=== PATIENT | female | born 1945 | race Caucasian/White ===

== ENCOUNTER 2022-10-19 09:20 | Day surgery (SDC) | payer MEDICARE, OTHER ==
[2022-10-14 12:15] LABS: BASOPHILS % (AUTO) 1.2 % (0-1); EOSINOPHILS # (AUTO) 0.3 X10'3 (0-0.9); EOSINOPHILS % (AUTO) 7.8 % (0-6); HEMATOCRIT 37.2 % (35.0-45.0); HEMOGLOBIN 12.4 g/dl (12.0-16.0); LYMPHOCYTES # (AUTO) 1.3 X10'3 (1.1-4.8); LYMPHOCYTES % (AUTO) 34.1 % (21-51); MEAN CORPUSCULAR HEMOGLOBIN 33.4 PG (27.0-31.0); MEAN CORPUSCULAR HGB CONC 33.4 g/dL (33.0-36.5); MEAN CORPUSCULAR VOLUME 99.9 FL (78-98); MEAN PLATELET VOLUME 8.4 FL (7.4-10.4); MONOCYTES # (AUTO) 0.5 X10'3 (0-0.9); MONOCYTES % (AUTO) 13.7 % (2-12); NEUTROPHILS # (AUTO) 1.7 X10'3 (1.8-7.7); NEUTROPHILS % (AUTO) 43.2 % (42-75); PLATELET COUNT 278 X10'3 (140-440); RED BLOOD COUNT 3.72 X10'6 (4.20-5.60); RED CELL DISTRIBUTION WIDTH 13.6 % (11.5-14.5); WHITE BLOOD COUNT 3.9 X10'3 (4.5-11.0)
[2022-10-14 12:27] LABS: APTT 28 SECONDS (22-32)
[2022-10-14 12:30] LABS: ALANINE AMINOTRANSFERASE 20 U/L (12-78); ALBUMIN 3.9 G/DL (3.4-5.0); ALBUMIN/GLOBULIN RATIO 1.4 (1.1-1.5); ALKALINE PHOSPHATASE 80 IU/L (46-116); ANION GAP 7 (8-16); ASPARTATE AMINO TRANSFERASE 18 U/L (10-37); BILIRUBIN,TOTAL 0.4 MG/DL (0.1-1.0); BLOOD UREA NITROGEN 7 MG/DL (7-18); BUN/CREATININE RATIO 6.9 (10.0-20.0); CALCIUM 9.4 MG/DL (8.5-10.1); CHLORIDE 105 MMOL/L (99-107); CREATININE 1.02 MG/DL (0.40-0.90); GLUCOSE 96 MG/DL (70-104); POTASSIUM 3.9 MMOL/L (3.5-5.1); SODIUM 140 MMOL/L (135-145); TOTAL CARBON DIOXIDE 27.8 MMOL/L (24-32); TOTAL PROTEIN 6.7 G/DL (6.4-8.2); eGFR 53 ML/MIN
[2022-10-19] VITALS (14 sets, daily range): BP systolic 93–130; BP diastolic 38–65; PULSE 60–80; RESP 13–16; TEMP 97.9; O2SAT 91–98
[~2022-10-19] VITALS: Ht 162.6 cm; Wt 61.1 kg
[2022-10-19] MEDS ORDERED: diphenhydrAMINE 25mg capsule PO PRN (09:50)
[2022-10-19] MEDS ORDERED: LORazepam 0.5 MG tablet PO PRN (09:50)
[2022-10-19] MEDS ORDERED: normal saline 1,000 ML IV SCH (09:50)
[2022-10-19] MEDS ORDERED: methylPREDNISolone sod succ 125mg/2ml vial IV ONE (09:50)
[2022-10-19] MEDS ORDERED: nitroGLYCERIN 0.4mg SUBLingual tab SL PRN ×2 (09:50→13:25)
[2022-10-19] MEDS ORDERED: LEVO75TA7 PO (11:21)
[2022-10-19] MEDS ORDERED: PRED20TA PO (11:21)
[2022-10-19] MEDS ORDERED: CHOL100012 PO (11:21)
[2022-10-19] MEDS ORDERED: MULT-1085 PO (11:21)
[2022-10-19] MEDS ORDERED: ALPR0.5T9 PO (11:21)
[2022-10-19] MEDS ORDERED: CLOB15CR11 TOP (11:21)
[2022-10-19] MEDS ORDERED: FEXO-25 PO (11:21)
[2022-10-19] MEDS ORDERED: FLUT12AE22 PO (11:21)
[2022-10-19] MEDS ORDERED: FAMO20TA8 PO (11:21)
[2022-10-19] MEDS ORDERED: PREVCR VG (11:21)
[2022-10-19] MEDS ORDERED: BACL5TAB PO (11:21)
[2022-10-19] MEDS ORDERED: POLY17PO10 PO (11:21)
[2022-10-19] MEDS ORDERED: fentaNYL/PF 50MCG/1 ML 2ML syringe ONE (12:07)
[2022-10-19] MEDS ORDERED: midazolam 1 mg/ML 2ml injection ONE (12:07)
[2022-10-19] MEDS ORDERED: iohexol 350 MG/ML 50ML vial IV ONE (12:07)
[2022-10-19] MEDS ORDERED: iohexol 350MG/ML 100ml bottle IV ONE (12:08)
[2022-10-19] MEDS ORDERED: LIDOcaine 1% (10mg/ml)w/preservative inj. 20ml MDV ONE (12:08)
[2022-10-19] MEDS ORDERED: HYDROcodone/acetaminophen 10/325mg tab PO PRN (13:25)
[2022-10-19] MEDS ORDERED: proCHLORperazine 10 MG/2 ml inj IV PRN (13:25)
[2022-10-19] MEDS ORDERED: OXAZEpam 15mg capsule PO PRN (13:25)
[2022-10-19] MEDS ORDERED: ondansetron/PF 4mg/2ml inj IV PRN (13:25)
[2022-10-19] MEDS ORDERED: HYDROcodone/acetaminophen 5mg/325mg tablet PO PRN (13:25)
[2022-10-19] MEDS ORDERED: normal saline 1000ml 1,000 ML IV SCH (13:25)
== END 2022-10-19 18:55 | disposition home or self-care (01) ==
LOC: SSTAY O 09:20
PROVIDERS: ATTEND Internal Medicine Cardiovascular Disease
DX: R94.39 Abnormal result of other cardiovascular function study (principal); I25.10 Atherosclerotic heart disease of native coronary artery without angina pectoris; K22.4 Dyskinesia of esophagus; K21.00 Gastro-esophageal reflux disease with esophagitis, without bleeding; J44.9 Chronic obstructive pulmonary disease, unspecified; E03.9 Hypothyroidism, unspecified; F41.0 Panic disorder [episodic paroxysmal anxiety]; M17.0 Bilateral primary osteoarthritis of knee; H40.9 Unspecified glaucoma; Z88.2 Allergy status to sulfonamides; Z91.013 Allergy to seafood; Z91.048 Other nonmedicinal substance allergy status; Z90.710 Acquired absence of both cervix and uterus; Z98.890 Other specified postprocedural states; Z79.01 Long term (current) use of anticoagulants; Z79.899 Other long term (current) drug therapy; Z90.49 Acquired absence of other specified parts of digestive tract
CPT/HCPCS: 36415; 71046; 80053; 85025; 85610; 85730; 93005; 93458; 99152; J1644; J2250; J2930; J3010; J3490; J7030; Q0163; Q9967; 99153; A4314; A6258; C1760

== ENCOUNTER 2024-08-29 12:49 | Emergency (ER) | payer MEDICARE, OTHER ==
[~2024-08-29] VITALS: Ht 162.6 cm; Wt 57.4 kg
[~2024-08-29 12:49] MED LIST: ALPR0.5T9 PO; BACL5TAB PO; CHOL100012 PO; CLOB15CR11 TOP; FAMO20TA8 PO; FEXO-25 PO; FLUT12AE22 PO; LEVO75TA7 PO; MULT-1085 PO; POLY17PO10 PO; PRED20TA PO; PREVCR VG
--- NOTE | 2024-08-29 13:38 | RADIOLOGY REPORT ---
Indication: constipation Technique: 2 views abdomen Comparison: None FINDINGS/IMPRESSION: Large volume stool within the colon. No evidence for free intraperitoneal air. Cholecystectomy. Pelvic vascular phleboliths.
--- NOTE | 2024-08-29 18:31 | Physician Documentation ---
History of Present Illness ~ Chief Complaint: Constipation Stated Complaint: POSS BOWEL BLOCKAGE Time Seen by MD: 18:00 Mode of Arrival: Ambulatory HPI Patient presents to the emergency room with chief complaint of constipation x2 weeks. She did have a small bowel movement proximally one-week ago. She has tried multiple [id number] remedies in his seen outpatient urgent care as well. She continues to pass gas that has now developed some abdominal pain. No fevers. Patient does have a history of irritable bowel syndrome emphasis constipation and she does take Linzess. She states she got very regular and stopped taking her Linzess and then became constipated and she has restarted her Linzess and now is in this situation. Medication Reconciliation Allergies: Coded Allergies: Sulfa (Sulfonamide Antibiotics) (Verified Allergy, Unknown, 10/19/22) iodine (Verified Allergy, Unknown, 10/19/22) Uncoded Allergies: SHELLFISH (Allergy, Unknown, 10/19/22) Scheduled Cholecalciferol (Vitamin D3) (Vitamin D3), 2 TAB PO DAILY, (Reported) Estrogens,Conjugated (PREMARIN Vaginal Cream), 1 APPLIC VG DAILY, (Reported) Famotidine (Famotidine), 2 TAB PO BID, (Reported) Levothyroxine Sodium (Levothyroxine Sodium), 1 TAB PO DAILY, (Reported) Multivitamin (Multi Vitamin Daily), 1 TAB PO DAILY, (Reported) Prednisone* (Prednisone*), 3 TAB PO We, (Reported) Scheduled PRN Alprazolam (Alprazolam), 1 TAB PO DAILY PRN for for anxiety/agitation, (Reported ) Baclofen (Baclofen), 1 TAB PO BID PRN for muscle spasms, (Reported) Clobetasol Propionate/Emoll (Clobetasol Emollient 0.05% Crm), 1 APPLIC TOP Q12H PRN for itching, (Reported) Fexofenadine Hcl (Emmy Allergy), 1 TAB PO BID PRN for allergies, (Reported) Fluticasone Propionate (Fluticasone Propionate Hfa), 2 PUFFS PO BID PRN for SOB or wheezing, (Reported) Polyethylene Glycol 3350* (Miralax*), 1 PKT PO DAILY PRN for constipation, (Reported) Review of Systems ROS All review of systems negative except as per HPI Physical Exam Vital Signs: Temperature: 98.2, Source: Oral, Heart Rate: 68, Respiratory Rate: 16, BP: 141/74, Pulse Oximetry: 97, Weight: 57.400 Oxygen Flow Rate: 0 Physical Exam General: Patient is awake, alert, oriented x4 in no acute distress and well appearing.~ Head: Normocephalic and atraumatic. Eyes: Conjunctival normal. EOMI. PERRL. ENT: Mucous membranes moist. Neck: Supple, trachea is midline. Chest: Clear to auscultation bilaterally without rales, rhonchi, or wheezes. There is no accessory muscle use or retractions. Cardiac: RRR without murmurs, gallops, or rubs. Abd: Soft, nondistended, positive tenderness to palpation diffusely without peritonitis Progress Results/Orders Results/Orders Orders - INDERJIT ZHOU MD Ct Abdomen Pelvis (08/29/24 18:25) Completed Orders - INDERJIT ZHOU MD Ct Abdomen Pelvis (08/29/24 18:25) Vital Signs 08/29/24 08/29/24 08/29/24 08/29/24 12:50 15:53 18:02 19:06 Temp 98.0 98.2 Pulse 60 61 68 Resp 16 16 16 B/P (MAP) 156/71 131/83 (99) 141/74 (96) Pulse Ox 99 94 97 O2 Flow Rate 0 0 Medical Decision Making Findings Patient presented to the emergency room with chief complaint of constipation. Differentials include but are not limited to constipation, small-bowel obstruction, diverticulitis, intra-abdominal infection therefore emergent x-ray was ordered which was negative for obstruction however she did have tenderness to palpation and given her age and risk factors who concern for possible intra-a bdominal infection such as diverticulitis therefore CT scan was performed which was negative for emergent process but did demonstrate constipation. Offered enema however patient would prefer to go home and do enema. Had long discussion with the patient about the need to titrate up her constipation medications until having regular bowel movements. The need to stay hydrated also discussed. ER precautions discussed. Departure Disposition: HOME / SELF CARE / HOMELESS Impression: Primary Impression: Constipation Additional Impression: Pulmonary nodule Condition: Stable Discharge Instructions: Constipation, Adult Additional Instructions: there was a nodule seen on your CT scan of your lung. This is of indeterminant significance and needs to be followed up by your doctor as this could possibly represent cancer. Increase your constipation medications until regular bowel movements. Must drink plenty of water Referrals: NO PRIMARY CARE PROVIDER (PCP) Education Educated: Patient Educated regarding: diagnosis, treatment, need for follow up Signature Scribe Signature: No scribe Attestation: The note accurately reflects work and decisions made by me.Inderjit Zhou MD 08/29/24 19:38 INDERJIT ZHOU MD Aug 29, 2024 18:31
--- NOTE | 2024-08-29 19:13 | RADIOLOGY REPORT ---
Indication: abd pain Technique: CT axial images of the abdomen and pelvis are obtained with intravenous contrast. Coronal and sagittal reformats were obtained. Radiation Dose Information: CTDI volume is 13 mGy. Dose-length product is 572 mGy*cm Comparison: None FINDINGS: Lung bases demonstrate bilateral pulmonary tree-in-bud nodularity. 6 mm right lower lobe pulmonary no dule Adrenal glands, spleen and pancreas unremarkable in shape. Cholecystectomy. Hepatic cysts measuring up to 1.7 cm. Kidneys demonstrate no hydronephrosis. Small hiatal hernia. Stomach is partially distended. Small bowel loops are normal in caliber. Large volume stool within the colon. Normal appendix. Abdominal aortic atherosclerotic disease. Bladder partially distended. No free pelvic fluid. No ingui nal lymphadenopathy. [id number] thoracolumbar degenerative disc disease. IMPRESSION: Large volume stool within the colon suggesting constipation. Pulmonary tree-in-bud nodularity which can be secondary to atypical infection, bronchiolitis. Atherosclerotic disease. 6 mm right lower lobe pulmonary nodule. Recommend follow-up per Fleischner society criteria Other findings as described.
[2024-08-29 19:48] VITALS: BP 126/80; PULSE 80; RESP 18; TEMP 98.1; O2SAT 99
== END 2024-08-29 19:50 | disposition home or self-care (01) ==
LOC: ER 12:49
DX: K59.00 Constipation, unspecified (principal); R91.1 Solitary pulmonary nodule; Z88.2 Allergy status to sulfonamides; Z88.8 Allergy status to other drugs, medicaments and biological substances; Z91.041 Radiographic dye allergy status
CPT/HCPCS: 74018; 74176; 99284